=== PATIENT | female | born 1990 | race Caucasian/White ===

== ENCOUNTER 2016-11-11 08:04 | Emergency (ER) | payer OTHER ==
[~2016-11-11] VITALS: Ht 172.7 cm; Wt 110.5 kg
[~2016-11-11 08:04] MED LIST: CITA10TA8 PO; LEVO1TAB29 PO
[2016-11-11 08:05] VITALS: BP 155/108
[2016-11-11] MEDS ORDERED: KETOROLAC 30 MG/1 ML ONE ×2 (08:31→08:34)
[2016-11-11] MEDS ORDERED: KETOROLAC 30 MG/1 ML IM ONE (09:00)
== END 2016-11-11 09:32 | disposition home or self-care (01) ==
LOC: ED 08:50
DX: S39.012A Strain of muscle, fascia and tendon of lower back, initial encounter (principal); X50.9XXA Other and unspecified overexertion or strenuous movements or postures, initial encounter; Y93.89 Activity, other specified; Y92.89 Other specified places as the place of occurrence of the external cause; Y99.8 Other external cause status
CPT/HCPCS: 96372; 99283; J1885

== ENCOUNTER 2016-11-19 02:02 | Emergency (ER) | payer OTHER ==
[~2016-11-19] VITALS: Ht 172.7 cm; Wt 111.3 kg
[2016-11-19 02:03] VITALS: BP 153/110
== END 2016-11-19 02:52 | disposition home or self-care (01) ==
LOC: ED 02:37
DX: J02.0 Streptococcal pharyngitis (principal)
CPT/HCPCS: 99283